=== PATIENT | male | born 2000 | race Caucasian/White ===

== ENCOUNTER 2019-06-22 23:15 | Emergency (ER) | payer BC ==
[2019-06-22] MEDS ORDERED: Propofol 500 MG/50 ML VIAL ONE (23:56)
--- NOTE | 2019-06-23 00:01 | RAD ---
EXAM: 2 views of the left shoulder HISTORY: Shoulder pain COMPARISON: None FINDINGS: There is anterior dislocation of the glenohumeral joint.. No degenerative changes are seen. The visualized thorax is unremarkable. IMPRESSION: Left shoulder dislocation.
--- NOTE | 2019-06-23 09:09 | RAD ---
LEFT SHOULDER TWO VIEWS: INDICATIONS: Post reduction. FINDINGS: There is restored alignment of the left glenohumeral joint. There is a focal cortical depression seen at the lateral aspect of the humeral head on the frontal projection. This indicates a Hill-Sachs les ion. The AC joint is maintained. A small bone island projects at the acromion. IMPRESSION: 1. Restored alignment of the left glenohumeral joint. 2. Hill-Sachs lesion. CODE T
== END 2019-06-23 01:03 | disposition home or self-care (01) ==
LOC: ERS 23:15
DX: S43.005A Unspecified dislocation of left shoulder joint, initial encounter (principal); W18.30XA Fall on same level, unspecified, initial encounter
CPT/HCPCS: 23650; 96374; 99156; J2704

== ENCOUNTER 2019-07-08 08:48 | Outpatient (CLI) | payer BC ==
[~2019-07-08 08:48] MED LIST: EPINEPHrine 1 MG/ML AMP ONE; Gadobenate Dimeglumine 529 MG/1 ML (20ML VIAL) ONE; Iopamidol 300 61% 50 ML VIAL FS ONE; Lidocaine 1% PF 10 ML AMP ONE
--- NOTE | 2019-07-08 11:31 | RAD ---
Left shoulder arthrogram: 07/08/2019 COMPARISON: None HISTORY: Left shoulder pain, history of prior shoulder dislocations FINDINGS: Informed consent obtained prior to the procedure. [employer] radiograph of the left s hodorothy demonstrates no widening of the acromioclavicular or coracoclavicular interspace. No acute fracture or evidence of dislocation is seen. The patient was placed on the fluoroscopic table in the supine position and skin overlying the left s hodorothy was prepped and draped in normal sterile fashion. Skin overlying the left shoulder joint was anesthetized with 1% buffered lidocaine. With intermittent fluoroscopic guidance, a 22-gauge spin al needle is advanced into the left shoulder joint. Approximately 10 cc of contrast containing mixture injected. Needle removed. Patient tolerated the procedure well. Exposure data: 0.9 minutes of fluoroscopic time, 46.5 mcg/sq m IMPRESSION: Successful left shoulder arthrogram prior to MRI.
--- NOTE | 2019-07-08 11:44 | MRI ---
MRI ARTHROGRAM OF THE LEFT SHOULDER: INDICATION: History of recurrent left shoulder dislocations with 3 separate dislocation events. TECHNIQUE: Multiplanar, multisequence MR images were obtained of the left shoulder following intraarticular admi nistration of a dilute Gadolinium solution. The patient could not tolerate an ABER view with an inab ility to raise the arm above the head. COMPARISON: Comparisons are made with radiographs from the left shoulder arthrogram dated 07/08/2019. FINDINGS: There is acute on chronic Hill-Sachs deformity with underlying bone marrow edema involving the grain elevator agent ior superior aspect of the humeral head. There is a full-thickness tear of the anterior inferior gle noid labrum extending from approximately from approximately the 4 o'clock position through the 5 o'cl ock position with scarring of the displaced labrum to the anterior aspect of the glenoid neck on imag e 9 of series 7. There is no full-thickness articular cartilage injury of the glenoid. The inferior , posterior inferior, posterior, and superior glenoid labrum appears intact. Biceps anchor complex i s intact. The biceps tendon is located. The rotator cuff is intact. No muscular atrophy is evident . The AC joint is normal appearing. There is a type I acromion. No os acromiale is evident. IMPRESSION: Findings of a Hill-Sachs deformity and [place] lesion of the anterior inferior glenoid. POS: [facility]
== END 2019-07-08 08:49 | disposition home or self-care (01) ==
LOC: RAD 08:48
PROVIDERS: ATTEND Orthopaedic Surgery
DX: M24.412 Recurrent dislocation, left shoulder (principal); S42.292A Other displaced fracture of upper end of left humerus, initial encounter for closed fracture
CPT/HCPCS: 23350; A9577; J0171; J2001; Q9967